=== PATIENT | female | born 1960 | race Caucasian/White ===

== ENCOUNTER 2018-11-10 19:03 | Emergency (ER) | payer OTHER ==
[~2018-11-10] VITALS: Ht 157.5 cm; Wt 104.3 kg
[~2018-11-10 19:03] MED LIST: ASPIRIN EC81 M1 PO; ISO10 PO; LOP100 PO; NIT0.4 SL; NOR10T PO; ZOC20 PO
[2018-11-10 19:12] VITALS: Ht 157.5 cm; Wt 104.3 kg
[2018-11-10 21:09] LABS: PLATELET COUNT 276 x10^3mcL (130-400); RED CELL DISTRIBUTION WIDTH 13.2 % (11.5-14.5)
[2018-11-10 21:10] LABS: UA SPECIFIC GRAVITY 1.025 (1.005-1.035); microscopic required? YES; urine erythrocyte 1+ (NEGATIVE)
[2018-11-10 21:20] LABS: CALCIUM 9.1 mg/dL (8.5-10.1); CARBON DIOXIDE 26.4 mmol/L (21-32); CHLORIDE SERUM 103 mmol/L (98-107); CREATININE SERUM 0.7 mg/dL (0.6-1.0); GFR1 > 60 mL/min; GLUCOSE SERUM 121 mg/dL (74-106); POTASSIUM SERUM 3.6 mmol/L (3.5-5.1); SODIUM SERUM 139 mmol/L (136-145)
[2018-11-10 21:33] LABS: ALKALINE PHOSPHATASE 89 U/L (46-116); ALT/SGPT 25 U/L (14-59); AST/SGOT 17 U/L (15-37); BILIRUBIN TOTAL 0.16 mg/dL (0.20-1.00); TOTAL PROTEIN, SERUM 6.8 g/dL (6.4-8.2)
[2018-11-10 21:39] LABS: ALBUMIN 3.3 g/dL (3.4-5.0)
[2018-11-10 22:31] VITALS: BP 147/81
== END 2018-11-10 22:31 | disposition home or self-care (01) ==
LOC: ED 19:03
PROVIDERS: Emergency Medicine
DX: R42 Dizziness and giddiness (principal); R11.10 Vomiting, unspecified; J44.9 Chronic obstructive pulmonary disease, unspecified; I10 Essential (primary) hypertension; E78.00 Pure hypercholesterolemia, unspecified; Z98.890 Other specified postprocedural states
CPT/HCPCS: 36415; 84439; J8597; Q0092; Q0162

== ENCOUNTER 2020-06-21 19:17 | Emergency (ER) | payer OTHER ==
[~2020-06-21] VITALS: Ht 157.5 cm; Wt 117.9 kg
[2020-06-21 19:57] VITALS: BP 182/87; Ht 157.5 cm; Wt 117.9 kg
== END 2020-06-21 21:13 | disposition left against medical advice (07) ==
LOC: ED 19:17
DX: R06.02 Shortness of breath (principal); J44.9 Chronic obstructive pulmonary disease, unspecified; I10 Essential (primary) hypertension; E78.00 Pure hypercholesterolemia, unspecified; I25.2 Old myocardial infarction; G51.0 Bell's palsy